=== PATIENT | male | born 1955 | race Hispanic/Latino ===

== ENCOUNTER 2019-04-07 10:16 | Day surgery (SDC) | payer OTHER ==
[2019-04-04 11:44] VITALS: BP 143/79
[2019-04-04 11:48] LABS: BASOPHILS % (AUTO) 0.9 % (0.0-5.0); EOSINOPHILS % (AUTO) 3.1 % (0.0-8.0); HEMATOCRIT 47.6 % (42-54); LYMPHOCYTES % (AUTO) 29.6 % (21.0-51.0); MEAN CORPUSCULAR HEMOGLOBIN 28.5 pg (27.0-33.0); MEAN CORPUSCULAR HGB CONC 33.6 g/dL (32.0-36.0); MEAN CORPUSCULAR VOLUME 84.8 fL (79-99); MONOCYTES % (AUTO) 5.1 % (3.0-13.0); NEUTROPHILS % (AUTO) 60.9 % (40.0-77.0); PLATELET COUNT (AUTO) 234 K/uL (130-400); RED BLOOD CELL COUNT(AUTO) 5.61 MIL/uL (4.50-6.20); RED CELL DISTRIBUTION WIDTH 12.5 % (11.0-15.5); WHITE BLOOD COUNT (AUTO) 6.7 K/uL (4.8-10.8)
[2019-04-04 11:57] LABS: CREATININE 0.9 mg/dL (0.5-1.5); POTASSIUM 4.3 mmol/L (3.5-5.1)
[~2019-04-07] VITALS: Ht 175.3 cm; Wt 92.7 kg
[2019-04-07] VITALS (17 sets, daily range): BP systolic 107–142; BP diastolic 59–92
[2019-04-07] MEDS: CEFAZOLIN SODIUM 1 GM VIAL IVP SCH ×2 (06:00→15:45)
[~2019-04-07 10:16] MED LIST: ASPI-1026 PO; FISH1CAP63 PO; FLUT1DIS IH; LOSA1TAB37 PO; b12 PO
[2019-04-07] MEDS ORDERED: LACTATED RINGERS 1000ML 1,000 ML IV ONE (10:22)
--- NOTE | 2019-04-07 11:47 | NUR ---
SURGICAL PREP clipper prepped left shoulder surgical site,pre operative skin preparation with chlorhexidine gluconate 2% cloth Addendum: 04/07/19 at 1221 by MAU HAY RN RN Amended: Links added.
--- NOTE | 2019-04-07 12:30 | NUR ---
PAIN pt states no pain at rest .can not raise left arm very painful to move Addendum: 04/07/19 at 1251 by MAU HAY RN RN Amended: Links added.
[2019-04-07] MEDS ORDERED: MIDAZOLAM HCL 1 MG/ML 2ML VIAL ONE (15:00)
[2019-04-07] MEDS ORDERED: LIDOCAINE PF 2% 5ML ABBOJECT ONE (15:01)
[2019-04-07] MEDS ORDERED: ROCURONIUM 10MG/1ML SYR 10 MG/ML ML ONE (15:02)
[2019-04-07] MEDS ORDERED: PROPOFOL 10 MG/ML 20ML VIAL IV ONE ×2 (15:02→17:31)
[2019-04-07] MEDS ORDERED: ROPIVACAINE 0.5% 5MG/ML 30ML IJ ONE (15:12)
[2019-04-07] MEDS ORDERED: PHENYLEPHRINE HCL 10 MG/ML 1ML VIAL IV ONE (15:27)
[2019-04-07] MEDS ORDERED: SODIUM CHLORIDE 0.9% 10 ML VIAL ONE (16:44)
[2019-04-07] MEDS ORDERED: CEFAZOLIN SODIUM 1 GM VIAL ONE (16:44)
[2019-04-07] MEDS ORDERED: FENTANYL CITRATE PF 50 MCG/1 ML 2ML VIAL ONE (17:44)
[2019-04-07] MEDS ORDERED: GLYCOPYRROLATE 1 MG/5 ML SYRINGE ONE (17:50)
[2019-04-07] MEDS ORDERED: NEOSTIGMINE 5MG/5ML SYR IV ONE (17:50)
[2019-04-07] MEDS ORDERED: ONDANSETRON HCL 4 MG/2 ML VIAL ONE (17:50)
[2019-04-07] MEDS ORDERED: MELO-108 PO (18:06)
[2019-04-07] MEDS ORDERED: CEPH500B PO (18:06)
[2019-04-07] MEDS ORDERED: HYDR-4457 PO (18:06)
[2019-04-07] MEDS ORDERED: MEPERIDINE-PF 25 MG/ML SYG ONE (18:42)
== END 2019-04-07 20:10 | disposition home or self-care (01) ==
LOC: DAH 10:16
PROVIDERS: ATTEND Orthopaedic Surgery
DX: S46.012A Strain of muscle(s) and tendon(s) of the rotator cuff of left shoulder, initial encounter (principal); S46.212A Strain of muscle, fascia and tendon of other parts of biceps, left arm, initial encounter; I10 Essential (primary) hypertension; J45.909 Unspecified asthma, uncomplicated; Z79.82 Long term (current) use of aspirin; Z79.899 Other long term (current) drug therapy; Z98.890 Other specified postprocedural states; Z87.891 Personal history of nicotine dependence; W19.XXXA Unspecified fall, initial encounter; Y93.89 Activity, other specified; Y92.69 Other specified industrial and construction area as the place of occurrence of the external cause; Y99.0 Civilian activity done for income or pay
CPT/HCPCS: 23410; 36415; 64415; 80048; 85025; A4215; A4221; A4222; A4223; A4649 ×6; A4663; A4930 ×2; A6204; C1713 ×3; G0168; J0690 ×2; J2001; J2175; J2250; J2370; J2405; J2704 ×2; J2710; J2795; J3010; J3490; J7030; J7120 ×2

== ENCOUNTER 2019-06-10 05:45 | Day surgery (SDC) | payer SELFPAY ==
[2019-06-05 15:24] LABS: BASOPHILS % (AUTO) 0.8 % (0.0-5.0); EOSINOPHILS % (AUTO) 2.3 % (0.0-8.0); HEMATOCRIT 44.1 % (42-54); LYMPHOCYTES % (AUTO) 25.2 % (21.0-51.0); MEAN CORPUSCULAR HEMOGLOBIN 29.2 pg (27.0-33.0); MEAN CORPUSCULAR HGB CONC 34.9 g/dL (32.0-36.0); MEAN CORPUSCULAR VOLUME 83.5 fL (79-99); MONOCYTES % (AUTO) 8.3 % (3.0-13.0); NEUTROPHILS % (AUTO) 63.1 % (40.0-77.0); PLATELET COUNT (AUTO) 212 K/uL (130-400); RED BLOOD CELL COUNT(AUTO) 5.28 MIL/uL (4.50-6.20); RED CELL DISTRIBUTION WIDTH 12.3 % (11.0-15.5)
[2019-06-05 15:33] LABS: POTASSIUM 3.7 mmol/L (3.5-5.1)
[2019-06-05 15:45] VITALS: BP 169/87
[~2019-06-10] VITALS: Ht 175.3 cm; Wt 93.3 kg
[2019-06-10] VITALS (10 sets, daily range): BP systolic 120–145; BP diastolic 59–85
[2019-06-10] MEDS: CEFAZOLIN SODIUM 1 GM VIAL IVP SCH ×2 (05:00→08:50)
[~2019-06-10 05:45] MED LIST changes: +ALBU18HF7 IH; +HYDR-4457 PO; +LIDOP TP; +MELO-108 PO
[2019-06-10] MEDS ORDERED: LIDOCAINE HCL-MPF 0.5% 50ML VIAL IJ ONE (06:15)
[2019-06-10] MEDS ORDERED: MIDAZOLAM HCL 1 MG/ML 2ML VIAL ONE (06:16)
[2019-06-10] MEDS ORDERED: FENTANYL CITRATE PF 50 MCG/1 ML 2ML VIAL ONE (06:16)
[2019-06-10] MEDS ORDERED: PROPOFOL 10 MG/ML 20ML VIAL IV ONE (06:18)
[2019-06-10] MEDS ORDERED: LACTATED RINGERS 1000ML 1,000 ML IV ONE (06:31)
== END 2019-06-10 09:20 | disposition home or self-care (01) ==
LOC: DAH 05:45
PROVIDERS: ATTEND Neurological Surgery
DX: G56.01 Carpal tunnel syndrome, right upper limb (principal); I10 Essential (primary) hypertension; Z79.82 Long term (current) use of aspirin; Z79.899 Other long term (current) drug therapy; Z87.891 Personal history of nicotine dependence; Z82.49 Family history of ischemic heart disease and other diseases of the circulatory system; Z82.5 Family history of asthma and other chronic lower respiratory diseases; Z82.3 Family history of stroke
CPT/HCPCS: 36415; 64721; 80051; 85025; A4213; A4215 ×2; A4216; A4221; A4222; A4223 ×2; A4663; A6260; J0690; J2250; J2704; J3010; J3490; J7120

== ENCOUNTER → 2020-09-08 | Outpatient (CLI) | payer OTHER | END | disposition home or self-care (01) | LOC: RAH 15:06 | PROVIDERS: ATTEND Internal Medicine Nephrology | DX: Z13.6 Encounter for screening for cardiovascular disorders (principal) | CPT/HCPCS: 75571 ==